=== PATIENT | female | born 1975 | race Caucasian/White ===

== ENCOUNTER 2017-03-14 11:30 | Emergency (ER) | payer MEDICAID ==
--- NOTE | 2017-03-14 11:55 | EDPHY ---
H & P Stated Complaint: rt flank pain Time Seen by Provider: 03/14/17 11:46 HPI/ROS: CHIEF COMPLAINT: Right-sided rib pain HISTORY OF PRESENT ILLNESS: Patient is a 41-year-old female who comes to the emergency department complaining of right mid axillary rib pain that radiates to her back. She states that it hurts with deep inspiration. She has had the symptoms for about 3 days ever since playing golf. She is not sure she injured herself but she is worried about a blood clot. She states that she has had blood clots before but they were in her varicose veins that were since surgically removed. She denies any shortness of breath. No cough. She does have a sore throat and some laryngitis. She denies chest pain. She denies abdominal pain. No history of abdominal surgery. No urinary or vaginal symptoms. She has not had any leg pain or swelling. REVIEW OF SYSTEMS: Constitutional: denies: chills, fever, recent illness, recent injury EENTM: denies: blurred vision, double vision, nose congestion Respiratory: See HPI Cardiac: denies: chest pain, irregular heart rate, lightheadedness, palpitations Gastrointestinal/Abdominal: denies: abdominal pain, diarrhea, nausea, vomiting, blood streaked stools Genitourinary: denies: dysuria, frequency, hematuria, pain Musculoskeletal: See HPI Skin: denies: lesions, rash, jaundice, bruising Neurological: denies: headache, numbness, paresthesia, tingling, dizziness, weakness Hematologic/Lymphatic: denies: blood clots, easy bleeding, easy bruising Immunologic/allergic: denies: HIV/AIDS, transplant EXAM: GENERAL: Well-appearing, well-nourished and in no acute distress. HEAD: Atraumatic, normocephalic. EYES: Pupils equal round and reactive to light, extraocular movements intact, sclera anicteric, conjunctiva are normal. ENT: TMs normal, nares patent, oropharynx clear without exudates. Moist mucous membranes. NECK: Normal range of motion, supple without lymphadenopathy or JVD. LUNGS: Breath sounds clear to auscultation bilaterally and equal. No wheezes rales or rhonchi. HEART: Regular rate and rhythm without murmurs, rubs or gallops. ABDOMEN: Soft, nontender, normoactive bowel sounds. No guarding, no rebound. No masses appreciated. BACK: No CVA tenderness, no spinal tenderness, step-offs or deformities EXTREMITIES: Normal range of motion, no pitting or edema. No clubbing or cyanosis. NEUROLOGICAL: Cranial nerves II through XII grossly intact. Normal speech, normal gait. 5/5 strength, normal movement in all extremities, normal sensation PSYCH: Normal mood, normal affect. SKIN: Warm, dry, normal turgor, no visible rashes or lesions. Source: Patient Exam Limitations: No limitations - Personal History LMP (Females 10-55): 22-28 Days Ago Current Tetanus/Diphtheria Vaccine: Yes Tetanus Vaccine Date: 10/06 - Medical/Surgical History Hx Asthma: No Hx Chronic Respiratory Disease: No Hx Diabetes: No Hx Cardiac Disease: No Hx Renal Disease: No Hx Cirrhosis: No Hx Alcoholism: No Hx HIV/AIDS: No Hx Splenectomy or Spleen Trauma: No Other PMH: anx/depression, - Family History Significant Family History: No pertinent family hx - Social History Smoking Status: Never smoked Alcohol Use: Sober Drug Use: None Constitutional: Initial Vital Signs Temperature (C) 37.0 C 03/14/17 11:41 Heart Rate 92 03/14/17 11:41 Respiratory Rate 18 03/14/17 11:41 Blood Pressure 134/86 H 03/14/17 11:41 O2 Sat (%) 96 03/14/17 11:41 O2 Delivery Mode Room Air Allergies/Adverse Reactions: Sulfa (Sulfonamide Antibiotics) Allergy (Verified 07/07/16 18:52) prochlorperazine edisylate [From Compazine] Adverse Reaction (Unknown, Verified 07/07/16 18:52) Anaphylaxis Home Medications: Medication Instructions Recorded Albuterol Sulfate [Ventolin] 03/20/13 clonIDINE [Catapres (*)] 03/20/13 Fluticasone Hfa 220 Mcg [Flovent 2 puffs IH DAILY #1 mdi 05/01/13 220 MCG Hfa MDI (*)] Methocarbamol [Robaxin 750 mg (*)] 750 - 1,500 mg PO QID PRN #30 tab 05/01/13 oxyCODONE/APAP 5/325 [Percocet 1 - 2 tab PO Q4-6PRN PRN #25 tab 05/01/13 5/325 (*)] oxyCODONE/APAP 5/325 [Percocet 05/01/13 5/325 (RX)] predniSONE [Prednisone] 10 mg 05/01/13 Cephalexin [Keflex] 500 mg PO TID #21 cap 03/14/17 Medical Decision Making - Diagnostics Imaging Results: Imaging Impressions Chest X-Ray 03/14/17 11:53 Impression: No acute findings in the chest. Imaging: I viewed and interpreted images myself ED Course/Re-evaluation: We discussed the patient's test results which are reassuring. I will start her on Keflex for urinary tract infection. She understands and agrees with this plan. She declines further workup or testing at this time. She states that a few days ago she did have urinary symptoms but they resolved with azo and cranberry juice. Differential Diagnosis: Partial list of the Differential diagnosis considered include but were not limited to; muscle strain, urinary tract infection, kidney stone, biliary disease pneumonia, PE and although unlikely based on the history and physical exam, I also considered asthma, acute coronary disease, pneumothorax. I discussed these differential diagnoses and the plan with the patient as well as the usual and expected course. The patient understands that the diagnosis is provisional and that in medicine we are not always correct and that further workup is often warranted. Usual and customary warnings were given. All of the patient's questions were answered. The patient was instructed to return to the emergency department should the symptoms at all worsen or return, otherwise to followup with the physician as we discussed. - Data Points Laboratory Results: Laboratory Results 03/14/17 12:03 03/14/17 12:03 03/14/17 03/14/17 03/14/17 12:03 12:03 12:03 WBC 5.46 10^3/uL 10^3/uL (3.80-9.50) RBC 4.25 10^6/uL 10^6/uL (4.18-5.33) Hgb 12.9 g/dL g/dL (12.6-16.3) Hct 39.4 % % (38.0-47.0) MCV 92.7 fL fL (81.5-99.8) MCH 30.4 pg pg (27.9-34.1) MCHC 32.7 g/dL g/dL (32.4-36.7) RDW 13.9 % % (11.5-15.2) Plt Count 245 10^3/uL 10^3/uL (150-400) MPV 10.4 fL fL (8.7-11.7) Neut % (Auto) 59.8 % % (39.3-74.2) Lymph % (Auto) 24.2 % % (15.0-45.0) [place] % (Auto) 10.3 % % (4.5-13.0) Eos % (Auto) 5.3 % % (0.6-7.6) Baso % (Auto) 0.2 % L % (0.3-1.7) Nucleat RBC Rel Count 0.0 % % (0.0-0.2) Absolute Neuts (auto) 3.27 10^3/uL 10^3/uL (1.70-6.50) Absolute Lymphs (auto) 1.32 10^3/uL 10^3/uL (1.00-3.00) Absolute Monos (auto) 0.56 10^3/uL 10^3/uL (0.30-0.80) Absolute Eos (auto) 0.29 10^3/uL 10^3/uL (0.03-0.40) Absolute Basos (auto) 0.01 10^3/uL L 10^3/uL (0.02-0.10) Absolute Nucleated RBC 0.00 10^3/uL 10^3/uL (0-0.01) Immature Gran % 0.2 % % (0.0-1.1) Immature Gran # 0.01 10^3/uL 10^3/uL (0.00-0.10) PT 12.8 SEC SEC (12.0-15.0) INR 0.99 (0.83-1.16) APTT 25.8 SEC SEC (23.0-38.0) D-Dimer < 0.27 ug/mLFEU ug/mLFEU (0.00-0.50) Sodium 141 mEq/L mEq/L (134-144) Potassium 4.2 mEq/L mEq/L (3.5-5.2) Chloride 109 mEq/L mEq/L (97-110) Carbon Dioxide 18 mEq/l L mEq/l (22-31) Anion Gap 14 mEq/L mEq/L (8-16) BUN 15 mg/dL mg/dL (7-23) Creatinine 0.9 mg/dL mg/dL (0.6-1.0) Estimated GFR > 60 Glucose 89 mg/dL mg/dL (70-100) Calcium 8.8 mg/dL mg/dL (8.5-10.4) Total Bilirubin 0.4 mg/dL mg/dL (0.1-1.4) Conjugated Bilirubin 0.3 mg/dL mg/dL (0.0-0.5) Unconjugated Bilirubin 0.1 mg/dL mg/dL (0.0-1.1) AST 29 IU/L IU/L (14-46) ALT 36 IU/L IU/L (9-52) Alkaline Phosphatase 85 IU/L IU/L (38-126) Troponin I < 0.012 ng/mL ng/mL (0-0.034) Total Protein 6.5 g/dL g/dL (6.3-8.2) Albumin 3.6 g/dL g/dL (3.5-5.0) Lipase 55.0 IU/L IU/L (23-300) Urine Color Urine Appearance Urine pH Ur Specific [place] Urine Protein Urine Ketones Urine Blood Urine Nitrate Urine Bilirubin Urine Urobilinogen Ur Leukocyte Esterase Urine RBC Urine WBC Ur Epithelial Cells Urine Bacteria Urine Mucus Urine Glucose 03/14/17 11:55 WBC RBC Hgb Hct MCV MCH MCHC RDW Plt Count MPV Neut % (Auto) Lymph % (Auto) [place] % (Auto) Eos % (Auto) Baso % (Auto) Nucleat RBC Rel Count Absolute Neuts (auto) Absolute Lymphs (auto) Absolute Monos (auto) Absolute Eos (auto) Absolute Basos (auto) Absolute Nucleated RBC Immature Gran % Immature Gran # PT INR APTT D-Dimer Sodium Potassium Chloride Carbon Dioxide Anion Gap BUN Creatinine Estimated GFR Glucose Calcium Total Bilirubin Conjugated Bilirubin Unconjugated Bilirubin AST ALT Alkaline Phosphatase Troponin I Total Protein Albumin Lipase Urine Color YELLOW Urine Appearance HAZY Urine pH 5.5 (5.0-7.5) Ur Specific [place] >= 1.030 (1.002-1.030) Urine Protein TRACE H (NEGATIVE) Urine Ketones NEGATIVE (NEGATIVE) Urine Blood NEGATIVE (NEGATIVE) Urine Nitrate NEGATIVE (NEGATIVE) Urine Bilirubin NEGATIVE (NEGATIVE) Urine Urobilinogen 0.2 EU EU (0.2-1.0) Ur Leukocyte Esterase NEGATIVE (NEGATIVE) Urine RBC NONE SEEN /hpf /hpf (0-3) Urine WBC 5-10 /hpf H /hpf (0-3) Ur Epithelial Cells 3+ /lpf H /lpf (NONE-1+) Urine Bacteria 1+ /hpf H /hpf (NONE SEEN) Urine Mucus 1+ /lpf /lpf (NONE-1+) Urine Glucose NEGATIVE (NEGATIVE) Departure - Departure Disposition: Home, Routine, Self-Care Clinical Impression: Urinary tract infection Qualifiers: Urinary tract infection type: acute cystitis Hematuria presence: without hematuria Qualified Code(s): N30.00 - Acute cystitis without hematuria Condition: Fair Instructions: Urinary Tract Infection in Women (ED) Referrals: Seng EISENBERG [Primary Care Provider] - As per Instructions Prescriptions: Cephalexin [Keflex] 500 mg PO TID #21 cap
--- NOTE | 2017-03-14 12:02 | CPEKG ---
Heart Rate: 86 RR Interval: 698 P-R Interval: 136 QRSD Interval: 84 QT Interval: 368 QTC Interval: 440 P [place]on: 51 QRS Acton: 6 T Wave [place]: 17 EKG Severity - NORMAL ECG - EKG Impression: SINUS RHYTHM Electronically Signed By: Rick Espana 15-Mar-2017 10:51:39
[2017-03-14 12:09] LABS: % IMMATURE GRANULYOCYTES 0.2 % (0.0-1.1); ABSOLUTE IMMATURE GRANULOCYTES 0.01 10^3/uL (0.00-0.10); ADD DIFF? NO; ADD MORPH? NO; ADD SCAN? NO; ATYPICAL LYMPHOCYTE FLAG 20 (0-99); FRAGMENT RBC FLAG 0 (0-99); HEMATOCRIT 39.4 % (38.0-47.0); HEMOGLOBIN 12.9 g/dL (12.6-16.3); LEFT SHIFT FLG 0 (0-99); LIPEMIA HEMOLYSIS FLAG 80 (0-99); MEAN CELL HEMOGLOBIN 30.4 pg (27.9-34.1); MEAN CELL HEMOGLOBIN CONCENTR. 32.7 g/dL (32.4-36.7); MEAN CELL VOLUME 92.7 fL (81.5-99.8); MEAN PLATELET VOLUME 10.4 fL (8.7-11.7); PLATELET CLUMPS FLAG 0 (0-99); PLATELET COUNT 245 10^3/uL (150-400); RED BLOOD CELL COUNT 4.25 10^6/uL (4.18-5.33); RED CELL DISTRIBUTION WIDTH 13.9 % (11.5-15.2)
[2017-03-14 12:15] LABS: COLOR YELLOW; LEUKOCYTE ESTERASE,URINE NEGATIVE (NEGATIVE); NITRITE,URINE NEGATIVE (NEGATIVE); PH,URINE 5.5 (5.0-7.5)
[2017-03-14 12:19] LABS: INR 0.99 (0.83-1.16); PROTIME(PATIENT) 12.8 SEC (12.0-15.0)
[2017-03-14 12:20] LABS: APTT 25.8 SEC (23.0-38.0)
[2017-03-14 12:21] LABS: MUCUS 1+ /lpf (NONE-1+); RBC,URINE NONE SEEN /hpf (0-3)
[2017-03-14 12:22] LABS: BACTERIA 1+ /hpf (NONE SEEN)
[2017-03-14 12:23] LABS: ALANINE AMINOTRANSFERASE 36 IU/L (9-52); ALBUMIN 3.6 g/dL (3.5-5.0); ALKALINE PHOSPHATASE 85 IU/L (38-126); ANION GAP 14 mEq/L (8-16); ASPARTATE AMINOTRANSFERASE 29 IU/L (14-46); BILIRUBIN,TOTAL 0.4 mg/dL (0.1-1.4); BILIRUBIN-CONJUGATED 0.3 mg/dL (0.0-0.5); BILIRUBIN-UNCONJUGATED 0.1 mg/dL (0.0-1.1); CALCIUM 8.8 mg/dL (8.5-10.4); CARBON DIOXIDE 18 mEq/l (22-31); CHLORIDE 109 mEq/L (97-110); CREATININE 0.9 mg/dL (0.6-1.0); GLOMERULAR FILTRATION RATE > 60; GLUCOSE 89 mg/dL (70-100); POTASSIUM 4.2 mEq/L (3.5-5.2); SODIUM 141 mEq/L (134-144); TOTAL PROTEIN 6.5 g/dL (6.3-8.2)
[2017-03-14 12:34] LABS: TROPONIN I < 0.012 ng/mL (0-0.034)
[2017-03-14 12:42] VITALS: BP 115/67; PULSE 98; RESP 16; TEMP 98.2; O2SAT 98
== END 2017-03-14 12:41 | disposition home or self-care (01) ==
LOC: CED 11:30
DX: N30.00 Acute cystitis without hematuria (principal); B96.89 Other specified bacterial agents as the cause of diseases classified elsewhere
CPT/HCPCS: 71020-PO; 80048-PO; 80076-PO; 81003-PO; 81015-PO; 83690-PO; 84484-PO; 85025-PO; 85378-PO; 85610-PO; 85730-PO

== ENCOUNTER 2017-11-02 16:54 | Emergency (ER) | payer MEDICAID ==
[2017-11-02 17:03] VITALS: PULSE 98; RESP 20; TEMP 98.6; O2SAT 95
--- NOTE | 2017-11-02 18:27 | EDPHY ---
H & P Time Seen by Provider: 11/02/17 17:03 HPI/ROS: CC: cough x 10 days HPI: This 42 y/o female with PMH of asthma and tobacco use presents to the ED with c/o a cough worsening over the last 10 days. She is now coughing up greenish-brown phlegm with streaks of blood but admits to also having bloody nasal discharge. Her throat is "on fire", her voice is hoarse and she has ear pain as well. She denies a significant elevation in her temperature. She denies shortness of breath but has more wheezing than usual despite her Albuterol. She was trying to wait for her PCP appointment but her mother convinced her to be seen sooner. She has had recent travel to [place] but no leg pain or swelling and no known ill contacts. ROS: Constitutional: No fever chills. Neck: No neck pain or stiffnuss. Eyes: No discharge. ENT: See HPI CV: No chest pain or palpitations Pulm: See HPI Abd: No abdominal pain. : No dysuria or hematuria MS: No swelling. No joint pain. Skin: No rashes. Neuro: No weakness or paresthesias. Psych: No depression or agitation. Past Medical/Surgical History: PMH: Varicose veins, HTN, asthma, C6-7 injury PSH: Neck surgery, , Tubal ligation FH: Mother alive and well; Father from pneumonia after surgical procedure Allergies: compazine Meds: Albuterol, Gabapentin, Clonidine, Flexeril, Citalopram (out x 4 days), ( OTC ibuprofen, cough drops, dayquil, nyquil) Social History: Tobacco - "a few" cigarettes per day; ETOH: a few glasses of wine per week, No marijuana or other drug use PCP: Gris Singleton Smoking Status: Current every day smoker Physical Exam: Gen: A/O x 3, in mild distress, coughing HEENT: NC/AT, PERRL, EOMI, Left TM erythematous, Nares with boggy turbinates, oropharynx slightly injected, uvula midline Neck: supple, no meningeal signs Heart: borderline tachy, no murmur Lungs: scant wheeze bilaterally, no rhonchi Abd: soft, NT, ND Extremities: Right knee with maximilian bandage. No calf pain, swelling, warmth, cords or erythema, pulses intact Neuro: non-focal Constitutional: Initial Vital Signs Temperature (C) 98.6 F 11/02/17 16:59 Heart Rate 98 11/02/17 16:59 Respiratory Rate 20 11/02/17 16:59 Blood Pressure 164/103 H 11/02/17 16:59 O2 Sat (%) 95 11/02/17 16:59 O2 Delivery Mode Room Air Allergies/Adverse Reactions: Sulfa (Sulfonamide Antibiotics) Allergy (Verified 11/02/17 17:03) prochlorperazine edisylate [From Compazine] Adverse Reaction (Unknown, Verified 11/02/17 17:03) Anaphylaxis Home Medications: Medication Instructions Recorded Albuterol Sulfate [Ventolin] 03/20/13 clonIDINE [Catapres (*)] 03/20/13 Fluticasone Hfa 220 Mcg [Flovent 2 puffs IH DAILY #1 mdi 05/01/13 220 MCG Hfa MDI (*)] Methocarbamol [Robaxin 750 mg (*)] 750 - 1,500 mg PO QID PRN #30 tab 05/01/13 AZITHROMYCIN [Z-PACK] 250 mg PO DAILY #6 tab 11/02/17 Gabapentin 11/02/17 IBUPROFEN 11/02/17 predniSONE 20 mg PO BID #20 tablet 11/02/17 Medical Decision Making ED Course/Re-evaluation: The patient was seen and examined. VS significant for elevated BP which improved by discharge (h/o HTN). Patient declined CXR and therefore cannot r/o pneumonia. Has Albuterol Refills. Will prescribe Azithromycin and Prednisone for bronchitis due to tobacco use and asthma history. Patient to keep appointment with PCP this week or return to the ER sooner if worse. Differential Diagnosis: Includes but not limited to: Sinusitis, OM, Bronchitis, Pharyngitis, Pneumonia , influenza, unlikely PE, Departure - Departure Disposition: Home, Routine, Self-Care Clinical Impression: Acute bronchitis Condition: Fair Instructions: Acute Bronchitis (ED) Additional Instructions: Monitor your blood pressure and have your primary care provider recheck it on your visit 11/06. Use a humidifier if possible. Return the to ER if any further problems or concerns. Referrals: NONE *PRIMARY CARE P,. [Primary Care Provider] - As per Instructions (Follow up with Gris Singleotn 11/06 as scheduled.) Prescriptions: AZITHROMYCIN [Z-PACK] 250 mg PO DAILY #6 tab predniSONE 20 mg PO BID #20 tablet
[2017-11-02 18:34] VITALS: BP 149/87
== END 2017-11-02 18:41 | disposition home or self-care (01) ==
LOC: CED 16:54
DX: J20.9 Acute bronchitis, unspecified (principal); I10 Essential (primary) hypertension; J45.909 Unspecified asthma, uncomplicated; F17.200 Nicotine dependence, unspecified, uncomplicated; Z88.2 Allergy status to sulfonamides